=== PATIENT | female | born 1945 | race Asian ===

== ENCOUNTER 2022-06-07 01:24 | Emergency (ER) | payer OTHER ==
[~2022-06-07] VITALS: Ht 162.6 cm; Wt 59.0 kg
[2022-06-07 01:40] VITALS: BP_SYST 187
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
--- NOTE | 2022-06-07 01:47 | NUR ---
Patient triaged and placed in waiting room. SPO2=97% ON RA patient appears in no acute distress at this time. Accompanied by [facility], awaiting available bed, and MD notified of need for MSE.
--- NOTE | 2022-06-07 03:27 | NUR ---
Placed in room 08 . Placed on teletypesetter monitor, blood pressure machine and pulse oximeter. To gown for exam. Side rails up. Report given to COLBY RODAS.
[2022-06-07] MEDS ORDERED: LORazepam 1 MG TABLET PO ONE (03:45)
[2022-06-07] MEDS ORDERED: VIS25 PO (03:54)
[2022-06-07 04:00] VITALS: BP_SYST 155
--- NOTE | 2022-06-07 04:49 | NUR ---
Note undone in EDM - 06[facility]07[facility]22 [facility] 0450 [facility] given written and verbal discharge instructions and verbalizes understanding. ER discussed with patient the results and treatment provided. Patient in stable condition. ID arm band removed. Rx given. Patient educated on pain management and to follow up with PMD. Pain Scale 0/10. Opportunity for questions provided and answered. Medication side effect fact sheet provided. Left with grand daughter.
--- NOTE | 2022-06-07 04:51 | NUR ---
Patient given written and verbal discharge instructions and verbalizes understanding. ER MD discussed with patient the results and treatment provided. Patient in stable condition. ID arm band removed. Rx given. Patient educated on pain management and to follow up with PMD. Pain Scale 0/10. Opportunity for questions provided and answered. Medication side effect fact sheet provided. Left with grand daughter
== END 2022-06-07 04:46 | disposition home or self-care (01) ==
LOC: SED 01:24
DX: R06.02 Shortness of breath (principal); F41.9 Anxiety disorder, unspecified; R00.2 Palpitations; I10 Essential (primary) hypertension; Z88.0 Allergy status to penicillin; Z79.899 Other long term (current) drug therapy
CPT/HCPCS: 93005; 99283